=== PATIENT | male | born 1990 | race Caucasian/White ===

== ENCOUNTER 2020-05-04 21:55 | Emergency (ER) | payer OTHER, MEDICAID, SELFPAY ==
[2020-05-04 22:09] VITALS: BP 127/84; PULSE 84; RESP 20; TEMP 36.7; O2SAT 98
--- NOTE | 2020-05-04 23:33 | ED.EXTPRO ---
HPI - Extremity Problem General Chief complaint: Extremity Problem,Nontraumatic Stated complaint: pain rt leg/foot Time Seen by Provider: 05/04/20 23:16 Source: patient Mode of arrival: Ambulatory Limitations: no limitations History of Present Illness HPI Narrative: 29-year-old gentleman presents with multiple complaints including pain in the right heel bad enough that he is having difficulty walking that is been progressively getting worse over the course of today. He then describes the pain radiating up to both shoulders and settling underneath his right nipple and causing overall chest pain. He also notes, as an aside, that he can not feel his right hand at all. He states he has a history of depression, anxiety, an inflamed heart valve ?, sporadic pain in various parts of his body including intermittent joint pain. He is on no current prescription medications and states his primary care physician is Dr. Brenton Guerra. Related Data Previous Rx's Medication Instructions Recorded codeine-guaifenesin [Cheratussin 10 ml PO Q6HP PRN #100 ml 02/25/18 AC] doxycycline hyclate 100 mg PO Q12H #20 cap 02/25/18 Allergies Allergy/AdvReac Type Severity Reaction Status Date / Time No Known Allergies Allergy Uncoded 03/05/18 11:55 Review of Systems Review of Systems Narrative: Pertinent positive and negative findings as per HPI Remainder of review of systems is otherwise unremarkable for Constitutional: Fevers, chills, weakness ENT: No sore throat, neck pain, ear pain CV: palpitations, dyspnea on exertion Respiratory: Cough, wheeze, dyspnea GI: Nausea, vomiting, diarrhea, change in bowel habits, black or bloody stools : Dysuria, hematuria, flank pain Skin: Rashes, nonhealing lesions Neuro: Syncope, Endocrine: Fatigue, heat or cold intolerance, very dry skin Heme: Easy bruising or bleeding Patient History Medical History (Updated 05/05/20 @ 01:13 by Aspen Martinez MD) Anxiety (Acute) Depression (Acute) Migraine (Acute) Social History Smoking Status: Current every day smoker Smoking Status: Current every day smoker Substance Use Type: marijuana Exam Narrative Exam Narrative: General: No acute distress, history is somewhat tangential and delivered with an intriguingly flippant attitude HEENT: Sclera are unremarkable, pupils are equal and reactive. Bilateral hickeys to his neck, no JVD Neck: Supple Chest: clear to auscultation, no wheeze, no rales. He complains of pain under his right nipple that is not reproducible with no skin changes fullness or erythema to the area of concern. No reproducible pain with AP or lateral compression of the ribcage Cardiac: Regular rate and rhythm. I do not appreciate murmurs on careful auscultation Abdomen: Soft nontender nondistended Skin: Superficial lesions to the right forearm without infection that seem to be related to ?picking Neurologic: States that he cannot feel his right arm. With testing he begins to have some said cessation in the upper deltoid area and has full sensation at about the level of the AC joint. I am unable to elicit a right brachial 0 radialis or antecubital reflux. He does have full and symmetrical pulses bilaterally. Muscle tone in the right arm is intermittent -at times significantly tense but he can relax. He is able to hold the arm close to his body but does not seem to be able to move it efficiently. When he goes to set up it seems like he has truncal difficulty from the right side. He even when he is not being observed he does tend to hold the right arm close and hand and fingers are not moving Extremities: He is able to walk with a somewhat antalgic gait. Right foot is examined he complains of tenderness to the posterior part of the heel without point tenderness, no erythema, no warmth no fluctuance and no evidence of trauma Psych: fluent speech but poor insight into overall issues/prior work up/health no auditory or visual hallucinations Initial Vital Signs Initial Vital Signs: Vital Signs Temperature 98.1 F 05/04/20 22:09 Pulse Rate 84 05/04/20 22:09 Respiratory Rate 20 05/04/20 22:09 Blood Pressure 127/84 05/04/20 22:09 Pulse Oximetry 98 05/04/20 22:09 Course Orders Ordered: ED Orders 05/04/20 23:34 XR chest 1V Stat EKG-12 Lead Stat 05/04/20 23:55 Complete Blood Count AUTO DIFF Stat Comprehensive Metabolic Panel Stat Troponin I Stat Vital Signs Vital signs: Vital Signs - 8 hr 05/04/20 22:09 Temperature 98.1 F Pulse Rate 84 Respiratory Rate 20 Blood Pressure 127/84 Pulse Oximetry 98 MDM - Extremity (Nontraumatic) Lab Data Attestation: I reviewed the patient's lab results. Result diagrams: 05/04/20 23:55 05/04/20 23:55 Labs: Lab Results 05/04/20 05/04/20 Range/Units 23:55 23:55 WBC 11.9 H (4.5-11.0) X10^3/uL RBC 5.14 (4.5-5.9) X10^6/uL Hgb 15.5 (13.5-17.5) g/dL Hct 44.1 (41-53) % MCV 85.8 (80-100) fL MCH 30.2 (26-34) PG MCHC 35.2 (30-36) % RDW 12.5 (11.6-14.8) % Plt Count 287 (150-400) X10^3/uL Neut % (Auto) 53.5 (50-75) % Lymph % (Auto) 31.2 (25-40) % [place] % (Auto) 7.4 (3-14) % Eos % (Auto) 7.0 H (2-4) % Baso % (Auto) 0.9 (0-2) % Neut # (Auto) 6400 (8993-9081) /uL Lymph # (Auto) 3700 (8995-5948) /uL [place] # (Auto) 900 (0-900) /uL Eos # (Auto) 800 H (0-450) /uL Baso # (Auto) 100 (0-100) /uL Sodium 139 (137-145) mmol/L Potassium 4.1 (3.4-5.1) mmol/L Chloride 105 (98-107) mmol/L Carbon Dioxide 25 (22-32) mmol/L BUN 14 (9-20) mg/dL Creatinine 0.79 (0.66-1.25) mg/dL Estimated GFR > 60.0 (>60) mL/min BUN/Creatinine Ratio 17.7 (6-22) Glucose 97 (70-100) mg/dL Calcium 9.7 (8.4-10.2) mg/dL Total Bilirubin 0.9 (0.2-1.3) mg/dL AST 31 (17-59) IU/L ALT 31 (<50) IU/L Alkaline Phosphatase 69 (38-126) U/L Troponin I < 0.012 (0.01-0.034) ng/mL Total Protein 8.6 H (6.3-8.2) g/dL Albumin 4.8 (3.5-5.0) g/dL Globulin 3.8 (1.7-4.1) g/dL Albumin/Globulin Ratio 1.3 (1.0-2.8) Imaging Data Chest x-ray: Attestation: I personally reviewed and interpreted this imaging study as follows: My Impression: No acute findings, normal cardiac silhouette, no infiltrates ECG Data Attestation EKG: I personally reviewed and interpreted this ECG as follows: Interpretation: Sinus rhythm at a rate of 60 Normal intervals, normal axis No acute STT wave changes MDM Narrative Medical decision making narrative: [facility]. Patient was seen there March 13 after an episode where he states he collapsed notes indicate that he was brought from home acutely confused. Workup was unremarkable including urine drug screen showed only marijuana no alcohol, normal labs. CT scan of the head that did not show any acute abnormalities or brain tumors and normal chest x-ray. Was eventually discharged home with a diagnosis of acute confusion that was clearing. Notes indicate medications include BuSpar Prozac and mirtazapine. Patient states that he is not currently taking medications now. Constellation of symptoms is nonphysiologic at this time. No evidence of infection or trauma to the foot which was his initial complaint. Chest pain workup is entirely unremarkable without evidence of pneumothorax, fractures or cardiovascular issues. Labs are otherwise reassuring. Regarding his neurologic exam at this time the most likely explanation for the difficulties in the right upper extremity are not due to brain infection, brain mass, or acute radicular findings. Strong suspicion for psychiatric overlay. No life-threatening issues are loose sedated and patient is safe for home discharge. Will encourage him to follow-up with his primary care physician Discharge Plan Departure Patient Disposition: Home Clinical Impression: Arm numbness Acute foot pain Qualifiers: Laterality: right Qualified Code(s): M79.671 - Pain in right foot Chest pain Qualifiers: Chest pain type: unspecified Qualified Code(s): R07.9 - Chest pain, unspecified Activity Restrictions/Additional Instructions: Thank you for coming in today You do have an unusual constellation of symptoms however I am not finding anything life-threatening. There is no evidence of trauma or infection to be causing the right heel pain. Using 400 mg of ibuprofen (2 [id number] pills) and 1 Tylenol every 6 hours can be very helpful in controlling pain. If it continues to worsen you will need to have your primary care physician take a look at this Regarding the pain going up to the shoulders to the right nipple and the right arm numbness, I am not seeing any acute abnormalities on your chest x-ray or in your blood work that would suggest this is directly related to your heart or a pneumonia. Your EKG and blood work related to your heart were normal. You did [facility] CT [facility] and that scan was reassuringly normal. At this time, I believe it is safe for you to go home. If your symptoms continue to persist please follow-up with your primary care physician Prescriptions: No Action doxycycline hyclate 100 MG capsule 100 mg PO Q12H Qty: 20 RF: 0 codeine-guaifenesin [Cheratussin AC] 118 ML liquid 10 ml PO Q6HP PRNQty: 100 RF: 0 Referrals: Brenton Guerra [Primary Care Provider] -
--- NOTE | 2020-05-04 23:34 | DI.RAD.S_ITS ---
PROCEDURE: XR CHEST 1V INDICATIONS: chest pain TECHNIQUE: One view of the chest was acquired. COMPARISON: [facility], , CHEST 2 VIEW, 02/25/2018, 9:15. FINDINGS: Surgical changes and devices: None. Lungs and pleura: Lungs are clear considering reduced inspiratory volume. No pleural effusions or pneumothorax. Mediastinum: Mediastinal contours appear normal. Heart size is normal. Bones and chest wall: No suspicious bony lesions. Overlying soft tissues appear unremarkable. IMPRESSION: Reduced inspiratory volume, no definite source of chest pain is found. Dictated by: James Ro M.D. on 05/05/2020 at 8:55 Approved by: James Ro M.D. on 05/05/2020 at 8:56
[2020-05-05 00:13] LABS: Add Manual Diff / Slide Review NO; Basophils Absolute Auto 100 /uL (0-100); Basophils Percent Auto 0.9 % (0-2); Eosinophils Absolute Auto 800 /uL (0-450); Hematocrit 44.1 % (41-53); Hemoglobin 15.5 g/dL (13.5-17.5); Lymphocytes Absolute Auto 3700 /uL (1100-4500); Lymphocytes Percent Auto 31.2 % (25-40); Mean Corpuscular HGB Conc 35.2 % (30-36); Mean Corpuscular Hemoglobin 30.2 PG (26-34); Mean Corpuscular Volume 85.8 fL (80-100); Monocytes Absolute Auto 900 /uL (0-900); Monocytes Percent Auto 7.4 % (3-14); Neutrophils Absolute Auto 6400 /uL (1500-7000); Neutrophils Percent Auto 53.5 % (50-75); Platelet Count 287 X10^3/uL (150-400); Red Blood Cell Count 5.14 X10^6/uL (4.5-5.9); Red Cell Distribution Width 12.5 % (11.6-14.8); White Blood Cell Count 11.9 X10^3/uL (4.5-11.0)
[2020-05-05 00:17] LABS: Alanine Aminotransferase 31 IU/L (<50); Albumin 4.8 g/dL (3.5-5.0); Albumin Globulin Ratio 1.3 (1.0-2.8); Alkaline Phosphatase 69 U/L (38-126); Aspartate Aminotransferase 31 IU/L (17-59); BUN Creatinine Ratio 17.7 (6-22); Bilirubin Total 0.9 mg/dL (0.2-1.3); Blood Urea Nitrogen 14 mg/dL (9-20); Calcium 9.7 mg/dL (8.4-10.2); Carbon Dioxide 25 mmol/L (22-32); Chloride 105 mmol/L (98-107); Estimated Glomerular Filt Rate > 60.0 mL/min (>60); Globulin 3.8 g/dL (1.7-4.1); Glucose 97 mg/dL (70-100); HEMOLYSIS 36 (0-50); Potassium 4.1 mmol/L (3.4-5.1); Sodium 139 mmol/L (137-145); Total Protein 8.6 g/dL (6.3-8.2)
[2020-05-05 00:29] LABS: Troponin I < 0.012 ng/mL (0.01-0.034)
[2020-05-05 01:26] VITALS: BP 124/83; PULSE 85; RESP 20; O2SAT 98
--- NOTE | 2020-05-05 01:31 | PC.NURSE ---
Pt states hx of anxiety, PTSD and is having R heel pain that radiates up to both shoulders and to right nipple. Also states he has numbness in his right hand. PT appears in no acute distress, laughing in room with friend at bedside. Pt seen at [facility] for similar symptoms a few weeks ago per pt, records received from [facility] and Dr. Michelle solano..
== END 2020-05-05 01:26 | disposition home or self-care (01) ==
PROVIDERS: Emergency Provider Emergency Medicine; Family Provider Family Medicine; PCP Family Medicine
DX: M79.671 Pain in right foot (principal); R20.0 Anesthesia of skin; R07.9 Chest pain, unspecified; M25.512 Pain in left shoulder; M25.511 Pain in right shoulder
CPT/HCPCS: 71045; 80053; 84484; 85025; 93005; 99282; 99284

== ENCOUNTER 2020-06-13 18:24 | Emergency (ER) | payer OTHER, MEDICAID, SELFPAY ==
[2020-06-13 18:53] VITALS: BP 120/74; PULSE 75; RESP 18; TEMP 36.8; O2SAT 98; BMI 27.8
[2020-06-13 19:59] LABS: INR 1.1 (0.9-1.3); Prothrombin Time 12.3 SECONDS (10.1-12.7)
[2020-06-13 20:02] LABS: PTT Partial Thromboplastin Tim 31 SECONDS (26.4-36.2)
[2020-06-13 20:04] LABS: Alanine Aminotransferase 26 IU/L (<50); Albumin 4.6 g/dL (3.5-5.0); Albumin Globulin Ratio 1.5 (1.0-2.8); Alkaline Phosphatase 54 U/L (38-126); Aspartate Aminotransferase 24 IU/L (17-59); BUN Creatinine Ratio 16.2 (6-22); Bilirubin Total 1.2 mg/dL (0.2-1.3); Blood Urea Nitrogen 18 mg/dL (9-20); Calcium 9.5 mg/dL (8.4-10.2); Carbon Dioxide 24 mmol/L (22-32); Chloride 106 mmol/L (98-107); Estimated Glomerular Filt Rate > 60.0 mL/min (>60); Globulin 3.1 g/dL (1.7-4.1); Glucose 100 mg/dL (70-100); HEMOLYSIS < 15 (0-50); Lipase 994 U/L (23-300); Sodium 139 mmol/L (137-145); Total Protein 7.7 g/dL (6.3-8.2)
[2020-06-13 20:07] LABS: Add Manual Diff / Slide Review NO; Basophils Absolute Auto 100 /uL (0-100); Basophils Percent Auto 0.7 % (0-2); Eosinophils Absolute Auto 600 /uL (0-450); Eosinophils Percent Auto 6.2 % (2-4); Hematocrit 43.5 % (41-53); Lymphocytes Absolute Auto 3000 /uL (1100-4500); Lymphocytes Percent Auto 33.5 % (25-40); Mean Corpuscular HGB Conc 34.4 % (30-36); Mean Corpuscular Hemoglobin 29.5 PG (26-34); Mean Corpuscular Volume 85.6 fL (80-100); Monocytes Absolute Auto 900 /uL (0-900); Monocytes Percent Auto 9.5 % (3-14); Neutrophils Absolute Auto 4500 /uL (1500-7000); Neutrophils Percent Auto 50.1 % (50-75); Platelet Count 298 X10^3/uL (150-400); Red Blood Cell Count 5.09 X10^6/uL (4.5-5.9); Red Cell Distribution Width 12.8 % (11.6-14.8)
[2020-06-13 22:10] VITALS: BP 117/79; PULSE 56; RESP 19; O2SAT 99
--- NOTE | 2020-06-13 22:21 | ED_ITS ---
HPI - Abdominal Pain General Chief Complaint: Abdominal Pain Stated Complaint: chest burning, some sob past couple of days Time Seen by Provider: 06/13/20 20:20 Source: patient Mode of arrival: Family Vehicle Limitations: no limitations History of Present Illness HPI narrative: 29-year-old gentleman with a history alcohol use disorder depression and recurrent abdominal pain presents with some mild chest burning an d slight dyspnea over the past number of days. Denies fever, cough, wheeze. He notes that he is not drinking alcohol, the chest pain he describes as epigastric and radiating up into the left lower portion of his chest. He has mild left upper quadrant pain but does not describe change to bowel or bladder habits. No dysuria. No neurologic complaints Related Data Previous Rx's Medication Instructions Recorded codeine-guaifenesin [Cheratussin 10 ml PO Q6HP PRN #100 ml 02/25/18 AC] doxycycline hyclate 100 mg PO Q12H #20 cap 02/25/18 Allergies Allergy/AdvReac Type Severity Reaction Status Date / Time No Known Allergies Allergy Uncoded 06/13/20 19:01 Review of Systems Review of Systems Narrative: Remainder of review of systems including constitutional, ENT, cardiovascular, respiratory, GI, , musculoskeletal, skin, neurologic and psychiatric systems reviewed and are unremarkable except as noted in HPI. Patient History Medical History Anxiety (Acute) Depression (Acute) Migraine (Acute) Social History Smoking Status: Current every day smoker Smoking Status: Current every day smoker tobacco type: cigarettes alcohol intake frequency: 0-2 drinks per day Substance Use Type: marijuana Exam Narrative Exam Narrative: General: Healthy appearing, in no acute distress. Able to give a complete and coherent history. Well-nourished well-developed HEENT: Moist mucous membranes, normal sclera with reactive pupils, Respiratory: Clear to auscultation, no wheezing no rales no rhonchi. Full and symmetrical air movement Cardiac: Regular rate and rhythm no murmurs no bruits Abdomen: Soft , mild tenderness left upper quadrant no rebound or guarding, good bowel tones, no flank pain Skin: Warm and dry, no rashes Neurologic: Grossly neurologically intact with no obvious asymmetries or abnormalities Extremities: No trauma, well perfused Psych: Cooperative, appropriate insight and affect Initial Vital Signs Initial Vital Signs: Vital Signs Temperature 98.2 F 06/13/20 18:53 Pulse Rate 75 06/13/20 18:53 Respiratory Rate 18 06/13/20 18:53 Blood Pressure 120/74 06/13/20 18:53 Pulse Oximetry 98 06/13/20 18:53 Course Orders Ordered: ED Orders 06/13/20 22:15 UA dip and micro [Urinalysis and Microscopic] Stat 06/13/20 22:23 CT abdomen pelvis w con Stat Discontinued Medications Hydromorphone HCl (Dilaudid) 1 mg IV NOW ONE Stop: 06/13/20 22:22 Last Admin: 06/14/20 01:36 Dose: Not Given Documented by: MIHAELA Sodium Chloride (Normal Saline 0.9%) 1,000 mls @ 1,000 mls/hr IV BOLUS ONE Stop: 06/13/20 23:20 Last Infusion: 06/14/20 01:36 Dose: 0 mls/hr Documented by: Admin: 06/13/20 22:59 Dose: 1,000 mls/hr Documented by: NEERAJ Ondansetron HCl (Zofran) 4 mg IV NOW ONE Stop: 06/13/20 22:22 Last Admin: 06/14/20 01:36 Dose: Not Given Documented by: MIHAELA Vital Signs Vital signs: Vital Signs - 8 hr 06/13/20 22:10 06/14/20 01:38 Pulse Rate 56 L 76 Respiratory Rate 19 16 Blood Pressure 117/79 119/82 Pulse Oximetry 99 96 MDM - Abdominal Pain Medical Records Attestation: I reviewed the patient's medical records. Lab Data Attestation: I reviewed the patient's lab results. Result diagrams: 06/13/20 19:10 06/13/20 19:10 Labs: Lab Results 06/13/20 06/13/20 06/13/20 Range/Units 19:10 19:10 19:10 WBC 9.0 (4.5-11.0) X10^3/uL RBC 5.09 (4.5-5.9) X10^6/uL Hgb 15.0 (13.5-17.5) g/dL Hct 43.5 (41-53) % MCV 85.6 (80-100) fL MCH 29.5 (26-34) PG MCHC 34.4 (30-36) % RDW 12.8 (11.6-14.8) % Plt Count 298 (150-400) X10^3/uL Neut % (Auto) 50.1 (50-75) % Lymph % (Auto) 33.5 (25-40) % [place] % (Auto) 9.5 (3-14) % Eos % (Auto) 6.2 H (2-4) % Baso % (Auto) 0.7 (0-2) % Neut # (Auto) 4500 (9810-2949) /uL Lymph # (Auto) 3000 (5677-7158) /uL [place] # (Auto) 900 (0-900) /uL Eos # (Auto) 600 H (0-450) /uL Baso # (Auto) 100 (0-100) /uL PT 12.3 (10.1-12.7) SECONDS INR 1.1 (0.9-1.3) APTT 31 (26.4-36.2) SECONDS Sodium 139 (137-145) mmol/L Potassium 4.0 (3.4-5.1) mmol/L Chloride 106 (98-107) mmol/L Carbon Dioxide 24 (22-32) mmol/L BUN 18 (9-20) mg/dL Creatinine 1.11 (0.66-1.25) mg/dL Estimated GFR > 60.0 (>60) mL/min BUN/Creatinine Ratio 16.2 (6-22) Glucose 100 (70-100) mg/dL Calcium 9.5 (8.4-10.2) mg/dL Total Bilirubin 1.2 (0.2-1.3) mg/dL AST 24 (17-59) IU/L ALT 26 (<50) IU/L Alkaline Phosphatase 54 (38-126) U/L Total Protein 7.7 (6.3-8.2) g/dL Albumin 4.6 (3.5-5.0) g/dL Globulin 3.1 (1.7-4.1) g/dL Albumin/Globulin Ratio 1.5 (1.0-2.8) Lipase 994 H (23-300) U/L Urine Color Urine Appearance Urine pH (4.5-8.0) Ur Specific [place] (1.000-1.035) Urine Protein (Negative) Urine Glucose (UA) (Negative) g/dL Urine Ketones (NEGATIVE) Urine Occult Blood (Negative) Urine Nitrate (Negative) Urine Bilirubin (NEGATIVE) Urine Urobilinogen (0.2) E.U./dL Ur Leukocyte Esterase (NEGATIVE) Urine RBC (0-5/HPF) Urine WBC (0-5/HPF) Amorphous Sediment Urine Bacteria (None) Ur Culture Indicated? 06/13/20 Range/Units 22:15 WBC (4.5-11.0) X10^3/uL RBC (4.5-5.9) X10^6/uL Hgb (13.5-17.5) g/dL Hct (41-53) % MCV (80-100) fL MCH (26-34) PG MCHC (30-36) % RDW (11.6-14.8) % Plt Count (150-400) X10^3/uL Neut % (Auto) (50-75) % Lymph % (Auto) (25-40) % [place] % (Auto) (3-14) % Eos % (Auto) (2-4) % Baso % (Auto) (0-2) % Neut # (Auto) (7753-1258) /uL Lymph # (Auto) (1694-7356) /uL [place] # (Auto) (0-900) /uL Eos # (Auto) (0-450) /uL Baso # (Auto) (0-100) /uL PT (10.1-12.7) SECONDS INR (0.9-1.3) APTT (26.4-36.2) SECONDS Sodium (137-145) mmol/L Potassium (3.4-5.1) mmol/L Chloride (98-107) mmol/L Carbon Dioxide (22-32) mmol/L BUN (9-20) mg/dL Creatinine (0.66-1.25) mg/dL Estimated GFR (>60) mL/min BUN/Creatinine Ratio (6-22) Glucose (70-100) mg/dL Calcium (8.4-10.2) mg/dL Total Bilirubin (0.2-1.3) mg/dL AST (17-59) IU/L ALT (<50) IU/L Alkaline Phosphatase (38-126) U/L Total Protein (6.3-8.2) g/dL Albumin (3.5-5.0) g/dL Globulin (1.7-4.1) g/dL Albumin/Globulin Ratio (1.0-2.8) Lipase (23-300) U/L Urine Color Yellow Urine Appearance Cloudy Urine pH 7.0 (4.5-8.0) Ur Specific [place] 1.015 (1.000-1.035) Urine Protein Negative (Negative) Urine Glucose (UA) Negative (Negative) g/dL Urine Ketones Negative (NEGATIVE) Urine Occult Blood Negative (Negative) Urine Nitrate Negative (Negative) Urine Bilirubin Negative (NEGATIVE) Urine Urobilinogen 0.2 (0.2) E.U./dL Ur Leukocyte Esterase Negative (NEGATIVE) Urine RBC None seen (0-5/HPF) Urine WBC None seen (0-5/HPF) Amorphous Sediment 4+ Urine Bacteria None seen (None) Ur Culture Indicated? Cult not indicated Imaging Data CT scan - abdomen/pelvis: Radiologist's Impression: Normal CT of the abdomen pelvis. Specifically the pancreatic duct diameter and the head measures 2 mm and tapers gradually into the tail where it is not visible. Mild enlargement of the tail represents a normal anatomic variant. No inflammatory changes and uniform Enhancement of the pancreas. Electronically signed on June 13, 2020 11:[address] Jake Arreola ECG Data Attestation: I personally reviewed and interpreted this ECG as follows: Interpretation: Sinus rhythm at a rate of [address] T wave changes normal axis, normal intervals No acute ischemic changes MDM Narrative Medical decision making narrative: Upper abdominal lower chest pain has been present for 6 hours today seems a bit worse than previously. He has had 5 years of intermittent upper chest and abdominal pain with negative workup. Labs today do not suggest acute infection however his lipase is slightly elevated at just under at 1000. Follow-up CT scan however does not suggest acute pancreatitis as there are no inflammatory pancreatic changes and uniform enhancement of the pancreas. At this point, I believe he is safe for home discharge. Did recommend clear diet for the next 24 hours and will have him return if he has additional issues or problems. Discharge Plan Departure Patient Disposition: Home Clinical Impression: Acute pancreatitis Qualifiers: Pancreatitis type: other Acute pancreatitis complication: no infection or necrosis Qualified Code(s): K85.80 - Other acute pancreatitis without necrosis or infection Discharge Date/Time: 06/14/20 01:39 Instructions: DI for Pancreatitis Activity Restrictions/Additional Instructions: Thank you for coming in today Your exam is nonspecific. Your blood work shows a slightly elevated lipase which suggests pancreatitis. In follow-up, the CT scan shows a normal looking pancreas without any surrounding inflammation. As your pain has improved significantly during her stay in the emergency department I am going to suggest that you go home and tomorrow you follow a clear liquid diet only. That means water juice Jell-O. Not eating allows your pancreas to not need to function. Begin adding food slowly the next day and see how your pain does. If you develop fevers, worsening pain, vomiting, diarrhea or new or changing symptoms that would be very appropriate to return to the emergency department. Please follow-up with your primary care doctor later this week. Prescriptions: No Action doxycycline hyclate 100 MG capsule 100 mg PO Q12H Qty: 20 RF: 0 codeine-guaifenesin [Cheratussin AC] 118 ML liquid 10 ml PO Q6HP PRNQty: 100 RF: 0 Referrals: Brenton Guerra [Primary Care Provider] -
--- NOTE | 2020-06-13 22:23 | DI.CT.S_ITS ---
PROCEDURE: CT ABDOMEN PELVIS W CON INDICATIONS: pancreatitis TECHNIQUE: After the administration of intravenous contrast, 5 mm thick sections acquired from the diaphragm to the symphysis. 5 mm coronal and sagittal reformats were acquired. For radiation dose reduction, the following was used: automated exposure control, adjustment of mA and/or kV according to patient size. COMPARISON: [facility], CT, CT ABDOMEN PELVIS WITH CONTRAST, 02/15/2020, 19:49. FINDINGS: Image quality: Excellent. ABDOMEN: Lung bases: There there is minimal dependent atelectasis. Small peripheral subpleural nodules in the left lower lobe measuring 4 mm on series 3, image 9 and 2 mm on image 10 appear unchanged from the prior study. Heart size is normal. Solid organs: Evaluation of the liver demonstrates no focal hepatic lesions. The gallbladder appears within normal limits without calcified gallstones. Biliary system is non-dilated. Pancreas enhances normally. No peripancreatic fat stranding or fluid collections. No pancreatic duct dilatation. There is fullness of the pancreatic tail redemonstrated without a discrete mass identified. The spleen is normal in size. No adrenal nodules. Kidneys demonstrate no hydronephrosis. Peritoneum and bowel: Bowel loops demonstrate normal wall thickness and caliber. The appendix is normal in appearance. There are few colonic diverticula without acute diverticulitis. No free fluid or air. Nodes and vessels: No retroperitoneal or mesenteric adenopathy by size criteria. Aorta and inferior vena cava are normal in size. Miscellaneous: No ventral hernias. PELVIS: Genitourinary: Bladder wall thickness is normal. Miscellaneous: No inguinal hernias or adenopathy. Bones: No suspicious bony lesions. No vertebral body compression fractures. IMPRESSION: 1. No CT evidence of acute pancreatitis. Recommend correlation with laboratory values. 2. No acute peripancreatic fluid collections or evidence of necrosis. 3. Colonic diverticulosis. 4. Small subpleural nodules peripherally in the left lower lobe are nonspecific. If patient is at high risk for malignancy, a follow-up CT may be performed in 12 months to demonstrate stability. Dictated by: Kirill Gutierres M.D. on 06/14/2020 at 8:47 Approved by: Kirill Gutierres M.D. on 06/14/2020 at 8:54
[2020-06-13 22:36] LABS: RBC Urine None Seen (0-5/HPF); WBC Urine None Seen (0-5/HPF)
[2020-06-13 22:56] LABS: Bilirubin Urine UA NEGATIVE (NEGATIVE); Color Urine UA YELLOW; Glucose Urine UA NEGATIVE (Negative); Ketones Urine UA NEGATIVE (NEGATIVE); Leukocyte Esterase Urine UA NEGATIVE (NEGATIVE); Nitrite Urine UA NEGATIVE (Negative); Occult Blood Urine UA NEGATIVE (Negative); Protein Urine UA NEGATIVE (Negative); Specific Gravity Urine UA 1.015 (1.000-1.035); Urobilinogen Urine UA 0.2 E.U./dL (0.2)
[2020-06-13 22:58] LABS: Appearance Urine UA Cloudy
[2020-06-13] MEDS: SODIUM CHLORIDE 0.9% 1,000 ML 1000 ML IV (22:59)
[2020-06-13 23:06] LABS: Amorphous Sediment Urine 4+; Bacteria Urine None Seen
[2020-06-13 23:07] LABS: Culture Indicated Urine Cult Not Indicated
[2020-06-14 01:38] VITALS: BP 119/82; PULSE 76; RESP 16; O2SAT 96
== END 2020-06-14 01:39 | disposition home or self-care (01) ==
PROVIDERS: Emergency Provider Emergency Medicine; Family Provider Family Medicine; PCP Family Medicine
DX: K85.80 Other acute pancreatitis without necrosis or infection (principal); R74.8 Abnormal levels of other serum enzymes; R06.00 Dyspnea, unspecified; R07.9 Chest pain, unspecified
CPT/HCPCS: 36415; 74177; 80053; 81001; 83690; 85025; 85610; 85730; 93005; 96360; 96361; 99284; 99285; Q9967

== ENCOUNTER 2021-04-19 13:04 | Emergency (ER) | payer OTHER, MEDICAID, SELFPAY ==
--- NOTE | 2021-04-19 13:07 | DI.RAD.S_ITS ---
PROCEDURE: XR CHEST 1V INDICATIONS: Eval for pneumonia TECHNIQUE: One view of the chest was acquired. COMPARISON: [facility], CR, XR CHEST 1V, 05/04/2020, 23:38. FINDINGS: Surgical changes and devices: None. Lungs and pleura: Lungs are clear. No pleural effusions or pneumothorax. Mediastinum: Mediastinal contours appear normal. Heart size is normal. Bones and chest wall: No suspicious bony lesions. Overlying soft tissues appear unremarkable. IMPRESSION: No acute pulmonary process. Dictated by: Luiza Jarrell M.D. on 04/19/2021 at 13:47 Approved by: Luiza Jarrell M.D. on 04/19/2021 at 13:47
[2021-04-19 13:08] VITALS: BP 121/82; PULSE 75; RESP 16; TEMP 36.9; O2SAT 99; BMI 23.6
[2021-04-19 13:46] LABS: COVID19 -Nasal RAPID Negative (Negative)
[2021-04-19 14:42] VITALS: PULSE 66; O2SAT 97
[2021-04-19 15:00] VITALS: PULSE 58; O2SAT 96
[2021-04-19 15:30] VITALS: PULSE 64; O2SAT 96
[2021-04-19 15:31] LABS: Add Manual Diff / Slide Review NO; Basophils Absolute Auto 100 /uL (0-100); Basophils Percent Auto 1.2 % (0-2); Eosinophils Absolute Auto 300 /uL (0-450); Hematocrit 43.6 % (41-53); Hemoglobin 15.2 g/dL (13.5-17.5); Lymphocytes Absolute Auto 2800 /uL (1100-4500); Lymphocytes Percent Auto 31.1 % (25-40); Mean Corpuscular HGB Conc 34.8 % (30-36); Monocytes Absolute Auto 800 /uL (0-900); Monocytes Percent Auto 8.9 % (3-14); Neutrophils Absolute Auto 5100 /uL (1500-7000); Neutrophils Percent Auto 55.8 % (50-75); Platelet Count 250 X10^3/uL (150-400); Red Blood Cell Count 5.07 X10^6/uL (4.5-5.9); Red Cell Distribution Width 12.7 % (11.6-14.8); White Blood Cell Count 9.1 X10^3/uL (4.5-11.0)
[2021-04-19 15:36] LABS: Alanine Aminotransferase 28 IU/L (<50); Albumin 4.4 g/dL (3.5-5.0); Albumin Globulin Ratio 1.3 (1.0-2.8); Alkaline Phosphatase 58 U/L (38-126); Aspartate Aminotransferase 27 IU/L (17-59); Bilirubin Total 1.2 mg/dL (0.2-1.3); Blood Urea Nitrogen 19 mg/dL (9-20); Calcium 9.4 mg/dL (8.4-10.2); Carbon Dioxide 31 mmol/L (22-32); Chloride 103 mmol/L (98-107); Estimated Glomerular Filt Rate > 60.0 mL/min (>60); Globulin 3.4 g/dL (1.7-4.1); Glucose 95 mg/dL (70-100); HEMOLYSIS 20 (0-50); Potassium 4.6 mmol/L (3.4-5.1); Sodium 139 mmol/L (137-145); Total Protein 7.8 g/dL (6.3-8.2)
--- NOTE | 2021-04-19 15:38 | ED.SOB ---
HPI - SOB/Dyspnea <YASIR Norton - Last Filed: 04/19/21 16:18> General Chief Complaint: Shortness of Breath/Dyspnea Stated Complaint: pneumonia or covid Time Seen by Provider: 04/19/21 14:38 Source: patient Mode of arrival: Ambulatory Limitations: no limitations History of Present Illness HPI Narrative: The patient is a 30-year-old male with history of migraines, current everyday smoker who presents with a chief complaint of sudden onset shortness of breath this morning. He states he had a ?migraine headache going for the base of his skull up in over. Then he felt sudden shortness of breath, muscle aches chills. Denies any objective fevers. He is concerned about coronavirus as he is not vaccinated, is also concerned about the possibility of pneumonia because he has had that in the past. He denies any long recent travel. Denies any cough or productive cough. Has not taken anything to feel better. He states that he was referred to the emergency department as he was short of breath. Related Data Previous Rx's Medication Instructions Recorded codeine-guaifenesin [Cheratussin 10 ml PO Q6HP PRN #100 ml 02/25/18 AC] doxycycline hyclate 100 mg PO Q12H #20 cap 02/25/18 Allergies Allergy/AdvReac Type Severity Reaction Status Date / Time No Known Allergies Allergy Uncoded 06/13/20 19:01 Review of Systems <YASIR Norton - Last Filed: 04/19/21 16:18> Review of Systems Narrative: GENERAL: See HPI HEENT: Denies sinus pain, ear pain, sore throat, difficulty swallowing, dizziness. RESPIRATORY: See HPI CARDIOVASCULAR: Denies chest pain, palpitations, orthopnea, edema, GASTROINTESTINAL: Denies nausea, vomiting, abdominal pain, diarrhea, constipation, melena. : Denies dysuria, frequency, incontinence, hematuria, urinary retention. MUSCULOSKELETAL: denies weakness, joint pain, or bony pain SKIN: Denies rash, skin lesions, or other NEUROLOGIC: Denies weakness, headache, numbness, change in speech, confusion, seizures, incoordination. PSYCHIATRIC: No concerning psychosocial issues. 12 point review of systems is negative except for those stated above Patient History <YASIR Norton - Last Filed: 04/19/21 16:18> Medical History (Updated 04/19/21 @ 16:10 by BRIANDA Norton) Anxiety Depression Migraine Social History Smoking Status: Current every day smoker Smoking Status: Current every day smoker tobacco type: cigarettes alcohol intake frequency: 0-2 drinks per day Substance Use Type: marijuana Exam <BRIANDA Norton - Last Filed: 04/19/21 16:18> Narrative Exam Narrative: GENERAL: This is a well-nourished, well-developed patient, in no acute distress HEAD: Atraumatic. Normocephalic. No temporal or scalp tenderness. EYES: Pupils equal round and reactive. Extraocular motions intact. No scleral icterus. No injection or drainage. ENT: Nose without bleeding, purulent drainage or septal hematoma. Wearing a mask Airway patent. NECK: Trachea midline. No JVD or lymphadenopathy. Supple, nontender, no meningeal signs. CARDIOVASCULAR: Regular rate and rhythm RESPIRATORY: Clear to auscultation. Breath sounds equal bilaterally. No wheezes, rales, or rhonchi. No cough. No increased respiratory effort. No accessory muscle use. GASTROINTESTINAL: Abdomen soft, non-tender, nondistended. No hepato-splenomegaly, or palpable masses. No guarding. EXTREMITIES: No clubbing, cyanosis, or edema. No joint tenderness, effusion, or edema noted. BACK: Nontender without deformity or crepitance. No flank tenderness. NEURO: AOx3. SKIN: No rash or erythema on visible skin Initial Vital Signs Initial Vital Signs: Vital Signs Temperature 98.4 F 04/19/21 13:08 Pulse Rate 75 04/19/21 13:08 Respiratory Rate 16 04/19/21 13:08 Blood Pressure 121/82 04/19/21 13:08 Pulse Oximetry 99 04/19/21 13:08 <Galen Chacon DO - Last Filed: 04/19/21 17:44> Initial Vital Signs Initial Vital Signs: Vital Signs Temperature 98.4 F 04/19/21 13:08 Pulse Rate 75 04/19/21 13:08 Respiratory Rate 16 04/19/21 13:08 Blood Pressure 121/82 04/19/21 13:08 Pulse Oximetry 99 04/19/21 13:08 Scores <YT NortonCameronBHUPENDRA - Last Filed: 04/19/21 16:18> GCS Horacio coma scale eye opening: Spontaneous Nellis coma scale verbal response: Orientated Horacio coma scale motor response: Obey commands Nellis coma scale total score: 15 Course <BRIANDA Norton - Last Filed: 04/19/21 16:18> Orders Ordered: ED Orders 04/19/21 13:07 XR chest 1V Stat 04/19/21 13:11 COVID19 -Nasal swab/Pre-Proc Stat 04/19/21 15:20 Complete Blood Count AUTO DIFF Stat Comprehensive Metabolic Panel Stat D Dimer Stat Vital Signs Vital signs: Vital Signs - 8 hr 04/19/21 13:08 04/19/21 14:42 04/19/21 15:00 Temperature 98.4 F Pulse Rate 75 66 58 L Respiratory Rate 16 Blood Pressure 121/82 Pulse Oximetry 99 97 96 04/19/21 15:30 Temperature Pulse Rate 64 Respiratory Rate Blood Pressure Pulse Oximetry 96 <Galen Chacon DO - Last Filed: 04/19/21 17:44> Orders Ordered: ED Orders 04/19/21 13:07 XR chest 1V Stat 04/19/21 13:11 COVID19 -Nasal swab/Pre-Proc Stat 04/19/21 15:20 Complete Blood Count AUTO DIFF Stat Comprehensive Metabolic Panel Stat D Dimer Stat Vital Signs Vital signs: Vital Signs - 8 hr 04/19/21 13:08 04/19/21 14:42 04/19/21 15:00 Temperature 98.4 F Pulse Rate 75 66 58 L Respiratory Rate 16 Blood Pressure 121/82 Pulse Oximetry 99 97 96 04/19/21 15:30 Temperature Pulse Rate 64 Respiratory Rate Blood Pressure Pulse Oximetry 96 MDM - SOB/Dyspnea <YASIR Norton - Last Filed: 04/19/21 16:18> Lab Data Result diagrams: 04/19/21 15:20 04/19/21 15:20 Labs: Lab Results 04/19/21 04/19/21 04/19/21 Range/Units 13:11 15:20 15:20 WBC 9.1 (4.5-11.0) X10^3/uL RBC 5.07 (4.5-5.9) X10^6/uL Hgb 15.2 (13.5-17.5) g/dL Hct 43.6 (41-53) % MCV 86.0 (80-100) fL MCH 30.0 (26-34) PG MCHC 34.8 (30-36) % RDW 12.7 (11.6-14.8) % Plt Count 250 (150-400) X10^3/uL Neut % (Auto) 55.8 (50-75) % Lymph % (Auto) 31.1 (25-40) % [place] % (Auto) 8.9 (3-14) % Eos % (Auto) 3.0 (2-4) % Baso % (Auto) 1.2 (0-2) % Neut # (Auto) 5100 (6690-8710) /uL Lymph # (Auto) 2800 (2600-4187) /uL [place] # (Auto) 800 (0-900) /uL Eos # (Auto) 300 (0-450) /uL Baso # (Auto) 100 (0-100) /uL D-Dimer < 200 (<230) ng/mL Sodium (137-145) mmol/L Potassium (3.4-5.1) mmol/L Chloride (98-107) mmol/L Carbon Dioxide (22-32) mmol/L BUN (9-20) mg/dL Creatinine (0.66-1.25) mg/dL Estimated GFR (>60) mL/min BUN/Creatinine Ratio (6-22) Glucose (70-100) mg/dL Calcium (8.4-10.2) mg/dL Total Bilirubin (0.2-1.3) mg/dL AST (17-59) IU/L ALT (<50) IU/L Alkaline Phosphatase (38-126) U/L Total Protein (6.3-8.2) g/dL Albumin (3.5-5.0) g/dL Globulin (1.7-4.1) g/dL Albumin/Globulin Ratio (1.0-2.8) SARS-CoV-2 (PCR) Negative (Negative) 04/19/21 Range/Units 15:20 WBC (4.5-11.0) X10^3/uL RBC (4.5-5.9) X10^6/uL Hgb (13.5-17.5) g/dL Hct (41-53) % MCV (80-100) fL MCH (26-34) PG MCHC (30-36) % RDW (11.6-14.8) % Plt Count (150-400) X10^3/uL Neut % (Auto) (50-75) % Lymph % (Auto) (25-40) % [place] % (Auto) (3-14) % Eos % (Auto) (2-4) % Baso % (Auto) (0-2) % Neut # (Auto) (4561-1273) /uL Lymph # (Auto) (8900-3051) /uL [place] # (Auto) (0-900) /uL Eos # (Auto) (0-450) /uL Baso # (Auto) (0-100) /uL D-Dimer (<230) ng/mL Sodium 139 (137-145) mmol/L Potassium 4.6 (3.4-5.1) mmol/L Chloride 103 (98-107) mmol/L Carbon Dioxide 31 (22-32) mmol/L BUN 19 (9-20) mg/dL Creatinine 0.76 (0.66-1.25) mg/dL Estimated GFR > 60.0 (>60) mL/min BUN/Creatinine Ratio 25.0 H (6-22) Glucose 95 (70-100) mg/dL Calcium 9.4 (8.4-10.2) mg/dL Total Bilirubin 1.2 (0.2-1.3) mg/dL AST 27 (17-59) IU/L ALT 28 (<50) IU/L Alkaline Phosphatase 58 (38-126) U/L Total Protein 7.8 (6.3-8.2) g/dL Albumin 4.4 (3.5-5.0) g/dL Globulin 3.4 (1.7-4.1) g/dL Albumin/Globulin Ratio 1.3 (1.0-2.8) SARS-CoV-2 (PCR) (Negative) Imaging Data Chest x-ray: Radiologist's Impression: [address] [place] [id number] ReportSigned Patient: Rolando Avalos AMR#: [id number]: 1990Acct:[id number]/Sex: 30 / MDate of Service: 04/19/21Loc: EDAccession Number: [id number] Procedure: XR chest 1V Ordering Provider: Galen Chacon D.O. PROCEDURE: XR CHEST 1V INDICATIONS: Eval for pneumonia TECHNIQUE: One view of the chest was acquired. COMPARISON: [facility], , XR CHEST 1V, 05/04/2020, 23:38. FINDINGS: Surgical changes and devices: None. Lungs and pleura: Lungs are clear. No pleural effusions or pneumothorax. Mediastinum: Mediastinal contours appear normal. Heart size is normal. Bones and chest wall: No suspicious bony lesions. Overlying soft tissues appear unremarkable. IMPRESSION: No acute pulmonary process. Dictated by: Luiza Jarrell M.D. on 04/19/2021 at 13:47 Approved by: Luiza Jarrell M.D. on 04/19/2021 at 13:47 MDM Narrative Medical decision making narrative: The patient is a 30-year-old male who presents with multiple complaints including sudden onset of chills, muscle aches, shortness of breath. He has a negative coronavirus test, chest x-ray is no acute findings. He declined any medications or further evaluation other than lab work. CBC CMP within normal limits. D-dimer is negative. Offered patient ketorolac for comfort of muscle aches etcetera which patient declined. Discussed that there is a risk of a false negative with coronavirus swab particularly if he has not been symptomatic for a while. Discussed at length importance of following up with primary care provider. Work note given. Discussed coming back to the ER for acute concerns. Patient has no questions or concerns upon discharge states understanding of return precautions as well as follow-up care. <Galen Chacon, DO - Last Filed: 04/19/21 17:44> Lab Data Labs: Lab Results 04/19/21 04/19/21 04/19/21 Range/Units 13:11 15:20 15:20 WBC 9.1 (4.5-11.0) X10^3/uL RBC 5.07 (4.5-5.9) X10^6/uL Hgb 15.2 (13.5-17.5) g/dL Hct 43.6 (41-53) % MCV 86.0 (80-100) fL MCH 30.0 (26-34) PG MCHC 34.8 (30-36) % RDW 12.7 (11.6-14.8) % Plt Count 250 (150-400) X10^3/uL Neut % (Auto) 55.8 (50-75) % Lymph % (Auto) 31.1 (25-40) % [place] % (Auto) 8.9 (3-14) % Eos % (Auto) 3.0 (2-4) % Baso % (Auto) 1.2 (0-2) % Neut # (Auto) 5100 (7449-9469) /uL Lymph # (Auto) 2800 (8840-1193) /uL [place] # (Auto) 800 (0-900) /uL Eos # (Auto) 300 (0-450) /uL Baso # (Auto) 100 (0-100) /uL D-Dimer < 200 (<230) ng/mL Sodium (137-145) mmol/L Potassium (3.4-5.1) mmol/L Chloride (98-107) mmol/L Carbon Dioxide (22-32) mmol/L BUN (9-20) mg/dL Creatinine (0.66-1.25) mg/dL Estimated GFR (>60) mL/min BUN/Creatinine Ratio (6-22) Glucose (70-100) mg/dL Calcium (8.4-10.2) mg/dL Total Bilirubin (0.2-1.3) mg/dL AST (17-59) IU/L ALT (<50) IU/L Alkaline Phosphatase (38-126) U/L Total Protein (6.3-8.2) g/dL Albumin (3.5-5.0) g/dL Globulin (1.7-4.1) g/dL Albumin/Globulin Ratio (1.0-2.8) SARS-CoV-2 (PCR) Negative (Negative) 04/19/21 Range/Units 15:20 WBC (4.5-11.0) X10^3/uL RBC (4.5-5.9) X10^6/uL Hgb (13.5-17.5) g/dL Hct (41-53) % MCV (80-100) fL MCH (26-34) PG MCHC (30-36) % RDW (11.6-14.8) % Plt Count (150-400) X10^3/uL Neut % (Auto) (50-75) % Lymph % (Auto) (25-40) % [place] % (Auto) (3-14) % Eos % (Auto) (2-4) % Baso % (Auto) (0-2) % Neut # (Auto) (3844-8219) /uL Lymph # (Auto) (7340-4346) /uL [place] # (Auto) (0-900) /uL Eos # (Auto) (0-450) /uL Baso # (Auto) (0-100) /uL D-Dimer (<230) ng/mL Sodium 139 (137-145) mmol/L Potassium 4.6 (3.4-5.1) mmol/L Chloride 103 (98-107) mmol/L Carbon Dioxide 31 (22-32) mmol/L BUN 19 (9-20) mg/dL Creatinine 0.76 (0.66-1.25) mg/dL Estimated GFR > 60.0 (>60) mL/min BUN/Creatinine Ratio 25.0 H (6-22) Glucose 95 (70-100) mg/dL Calcium 9.4 (8.4-10.2) mg/dL Total Bilirubin 1.2 (0.2-1.3) mg/dL AST 27 (17-59) IU/L ALT 28 (<50) IU/L Alkaline Phosphatase 58 (38-126) U/L Total Protein 7.8 (6.3-8.2) g/dL Albumin 4.4 (3.5-5.0) g/dL Globulin 3.4 (1.7-4.1) g/dL Albumin/Globulin Ratio 1.3 (1.0-2.8) SARS-CoV-2 (PCR) (Negative) Discharge Plan Departure Patient Disposition: Home Clinical Impression: Shortness of breath, Muscle ache Headache Qualifiers: Headache type: unspecified Headache chronicity pattern: unspecified pattern Intractability: not intractable Qualified Code(s): R51.9 - Headache, unspecified Instructions: DI for Shortness of Breath, DI for Headache, How to Manage Shortness of Breath, COVID-19: Testing and Tracing Activity Restrictions/Additional Instructions: Thank you for trusting us with your care today Please stop vaping As discussed, your COVID test was negative. This does not mean however that you do not have coronavirus. Often times you have to be symptomatic for several days before you test positive. However your chest x-ray shows no signs of pneumonia and your lab work is very reassuring. Please rest and push fluids. Please follow-up with primary care provider in the next few days. As discussed please come back to the emergency department for any acute concerns. Prescriptions: No Action doxycycline hyclate 100 MG capsule 100 mg PO Q12H Qty: 20 RF: 0 codeine-guaifenesin [Cheratussin AC] 118 ML liquid 10 ml PO Q6HP PRNQty: 100 RF: 0 Referrals: Brenton Guerra DO [Primary Care Provider] - Stand Alone Forms: Work Release Note <Galen Chacon DO - Last Filed: 04/19/21 17:44> Cosign ED Attending Cosignature Attestation: Dr Chacon Co-Sign Statement: I was available for consultation during this patient's emergency department visit. This chart is signed by myself for administrative purposes only. I did not have direct contact with this patient during this visit. They were seen independently by the APC.
[2021-04-19 15:57] LABS: D Dimer < 200 ng/mL (<230)
== END 2021-04-19 16:16 | disposition home or self-care (01) ==
PROVIDERS: Emergency Medicine; Emergency Provider Nurse Practitioner Family; Family Provider Family Medicine; PCP Family Medicine
DX: R06.02 Shortness of breath (principal); R51.9 Headache, unspecified; M79.10 Myalgia, unspecified site; Z20.822 Contact with and (suspected) exposure to COVID-19
CPT/HCPCS: 36415; 71045; 80053; 85025; 85379; 87635; 99284; C9803